=== PATIENT | female | born 1990 | race African-American/Black ===

== ENCOUNTER 2021-01-13 16:53 | Emergency (ER) | payer MEDICAID ==
[~2021-01-13] VITALS: Ht 162.6 cm; Wt 74.0 kg
[2021-01-13 16:59] VITALS: BP 144/84
[2021-01-13] MEDS ORDERED: LORAZEPAM 1MG TABLET PO ONE (20:45)
[2021-01-13] MEDS ORDERED: LORA-249 MT (21:23)
[2021-01-14] MEDS ORDERED: LORA-249 MT (16:22)
== END 2021-01-13 21:36 | disposition home or self-care (01) ==
LOC: ER 16:53
DX: F41.0 Panic disorder [episodic paroxysmal anxiety] (principal)
CPT/HCPCS: 93005; 99283